=== PATIENT | female | born 1990 | race Caucasian/White ===

== ENCOUNTER 2017-04-21 16:53 | Emergency (ER) | payer SELFPAY ==
[~2017-04-21] VITALS: Ht 157.5 cm; Wt 62.1 kg
[2017-04-21 16:54] VITALS: BP 117/63; PULSE 87; RESP 14; TEMP 98.2; O2SAT 99
== END 2017-04-21 19:48 | disposition left against medical advice (07) ==
LOC: NED 16:53
DX: O26.91 Pregnancy related conditions, unspecified, first trimester (principal); R10.9 Unspecified abdominal pain; Z3A.12 12 weeks gestation of pregnancy
CPT/HCPCS: 99292

== ENCOUNTER 2017-04-30 12:10 | Emergency (ER) | payer SELFPAY ==
--- NOTE | 2017-04-30 12:55 | PD ---
HPI Travel History International Travel<30 Days: No Contact w/Intl Traveler<30Days: No Known Affected Area: No History of Present Illness HPI This patient is a 26-year-old 2 para 0 EDC is October 12, 2017 presently at 16 weeks and 3 days. She presents with a 4 week history of lower abdominal cramping. Last night she was all blood. This described as light pinkish did not have to put on a pad this is been off and on care in [facility] however is moving to this area and looking for another physician Urinary frequency and urgency Just saw blood when she wiped Denies discharge odors or itching History Past Medical History Narrative Medical No known drug allergies no major medical problems Obstetric History Obstetric History 2008 possible ectopic Past Surgical History Narrative Surgical Surgery related to the ectopic Family History Narrative Family History Mother with heart disease Social History Alcohol Use: No Tobacco Use: No Substance Abuse: No Allergies-Medications (Allergen,Severity, Reaction): Coded Allergies: No Known Allergies (Unverified , 04/21/17) Review of Systems Gastrointestinal: Abdominal Pain (as per history of present illness) Genitourinary: Urgency, Frequency, Dysuria, Pelvic Pain Physical Exam Narrative GENERAL: Well-nourished, well-developed patient. Alert oriented 3 and cooperative in no acute distress SKIN: Warm and dry. HEAD: Normocephalic and atraumatic. EYES: No scleral icterus. No injection or drainage. Conjunctiva are pink ENT: No nasal drainage noted. Mucous membranes pink. Airway patent. NECK: Supple, trachea midline. No JVD. No adenopathy or thyromegaly CARDIOVASCULAR: Regular rate and rhythm without murmurs, gallops, or rubs. RESPIRATORY: Breath sounds equal bilaterally. No accessory muscle use. ABDOMEN/GI: Abdomen soft, non-tender, bowel sounds present, no rebound, no guarding soft nontender no epigastric or right upper quadrant tenderness uterus palpated at approximately 16 weeks size mildly tender Gravid to [-] weeks size 16 weeks Fundal Height: [-] GENITOURINARY: Speculum exam no blood seen in the vault a yellowish greenish frothy discharge present in the vagina consistent with either trichomonas or BV External Genitalia: intact and normal in appearance BUS glands: [-] Cervix: [-] Firm posterior Dilatation: [-] Closed Effacement: [-] Uneffaced Station: [-] Presentation: [-] Vertex on ultrasound Membranes: [intact Uterine Contractions: [-]0 FHT's: Category: [-] Baseline: [-]156 on ultrasound Reactive: [-] Variability: [-] Decels: [-] EXTREMITIES: No cyanosis or edema. 2+ reflexes BACK: Nontender without obvious deformity. No CVA tenderness. NEUROLOGICAL: Awake and alert. Motor and sensory grossly within normal limits. Five out of 5 muscle strength in all muscle groups. Normal speech. Data Data Vital Signs Reviewed: Yes (blood pressure 108/48 pulse 92 temperature is 90.8 heart tones 156) Labs Urinalysis is negative Wet prep indicates clue cells indicative of BV GC chlamydia are negative MDM Medical Record Reviewed: No (no medical records available) Interpretation(s) 26-year-old at 16 weeks 3 days No clinical evidence of threatened Vaginitis Rule out UTI Narrative Course / MDM Will treat the BV with Flagyl 500 mg by mouth twice a day for total of 5 days If GC Chlamydia is positive we will notify the patient and treat Plan By mouth fluid hydration Wet prep Urinalysis GC Chlamydia PCR Will treat accordingly based on findings Diagnosis Diagnosis: Primary Impression: with 16 completed weeks gestation Additional Impression: BV (bacterial vaginosis) Disposition: 01 DISCHARGE HOME Condition: Stable Aster Nash MD Apr 30, 2017 12:55
[2017-04-30 13:27] LABS: BACTERIA, URINE RARE /hpf; BLOOD, URINE NEG (NEG); COMMENT (UR) CULT NOT INDICATED; CULTURE IF INDICATED CULT NOT INDICATED; GLUCOSE,URINE NEG (NEG); KETONE, URINE NEG (NEG); MUCUS URINE FEW /lpf (OCC); NITRITE,URINE NEG (NEG); PH, URINE 7.5 (5.0-8.5); SQUAMOUS EPITHELIAL CELL URINE 8 /hpf (0-5); URINE COLOR YELLOW (YELLW/STRAW)
[2017-04-30 16:28] LABS: CHLAMYDIA PCR NOT DETECTED (NOT DETECT); NEISSERIA PCR NOT DETECTED (NOT DETECT)
== END 2017-04-30 14:08 | disposition home or self-care (01) ==
LOC: HOBED 12:10
DX: O23.592 Infection of other part of genital tract in pregnancy, second trimester (principal); Z3A.16 16 weeks gestation of pregnancy
CPT/HCPCS: 81001; 87210; 87491; 87591; 99283